=== PATIENT | male | born 1975 | race African-American/Black ===

== ENCOUNTER 2022-07-25 12:45 | Emergency (ER) | payer MEDICAID ==
[~2022-07-25] VITALS: Ht 167.6 cm; Wt 73.0 kg
--- NOTE | 2022-07-25 13:10 | NUR ---
BIBS C/O GENERALIZED WEAKNESS X 4 DAYS WITH FEVER AND CHILLS. AMBULATORY, AAOX4, BREATHING EVEN AND UNLABORED SATURATING AT 97%RA.
[2022-07-25] MEDS ORDERED: CEFTRIAXONE 500 MG VIAL ONE (13:25)
[2022-07-25] MEDS ORDERED: KETOROLAC TROMETHAMINE INJ 30 MG/ML VIAL ONE (13:25)
[2022-07-25] MEDS ORDERED: DOXYCYCLINE HYCLATE (100 MG) 100 MG TABLET ONE (13:26)
[2022-07-25] MEDS ORDERED: LIDOCAINE /MPF 1% VIAL 5 ML VIAL ONE (13:27)
[2022-07-25] MEDS ORDERED: KETOROLAC TROMETHAMINE INJ 30 MG/ML VIAL IM ONE (13:30)
[2022-07-25] MEDS ORDERED: DOXYCYCLINE HYCLATE (100 MG) 100 MG TABLET PO ONE (13:30)
[2022-07-25] MEDS ORDERED: CEFTRIAXONE 500 MG VIAL IM ONE (13:30)
--- NOTE | 2022-07-25 13:45 | NUR ---
SWAB FOR COVID19 AND RAPID INFLUENZA SENT TO LAB
--- NOTE | 2022-07-25 13:46 | NUR ---
MANAGER CLIENT SERVICE AT BEDSIDE
[2022-07-25] MEDS ORDERED: KETO10TA2 PO (14:59)
[2022-07-25] MEDS ORDERED: DOXY-326 PO (14:59)
[2022-07-25] MEDS ORDERED: PRED50TA PO (14:59)
[2022-07-25 15:11] VITALS: BP 118/77
--- NOTE | 2022-07-25 15:12 | NUR ---
Patient discharged to home in stable condition. Written and verbal after care instructions given. Patient verbalizes understanding of instruction.
== END 2022-07-25 15:12 | disposition home or self-care (01) ==
LOC: ER 12:48
DX: R53.1 Weakness (principal); A64 Unspecified sexually transmitted disease; Z60.2 Problems related to living alone; Z20.822 Contact with and (suspected) exposure to COVID-19
CPT/HCPCS: 99284; 87426; 86592; 86593; 96372 ×2; 87804 ×2; 36415; 87806; J0696; J1885; J3490; C9803

== ENCOUNTER 2022-08-03 17:20 | Emergency (ER) | payer MEDICAID ==
[~2022-08-03] VITALS: Ht 160 cm; Wt 63.5 kg
[~2022-08-03 17:20] MED LIST: DOXY-326 PO; KETO10TA2 PO; PRED50TA PO
--- NOTE | 2022-08-03 18:40 | NUR ---
RECEIVED PT 47 YRS MALE WALKING IN FROM HOME WITH GENRALIZED WEEKNESS AWAKE AND ALERT NO SOB OR DISTRESS
--- NOTE | 2022-08-03 19:18 | NUR ---
HAND OFF DEBBIE DEL RIO
[2022-08-03 20:08] VITALS: BP 121/66
== END 2022-08-03 20:17 | disposition home or self-care (01) ==
LOC: ER 17:22
DX: R53.1 Weakness (principal); Z79.899 Other long term (current) drug therapy; Z60.2 Problems related to living alone
CPT/HCPCS: 82962-TC

== ENCOUNTER 2022-09-03 12:40 | Inpatient (IN) | payer MEDICAID ==
[~2022-09-03] VITALS: Ht 162.6 cm; Wt 71.7 kg
--- NOTE | 2022-09-03 12:55 | NUR ---
THE PATIENT BIBS FOR C/O "THE BONE OR MEAT OF MY BUTT HURTS FOR A WEEK". PT DENIES ANY TRAUMA. WILL CONTINUE TO MONITOR THE PATIENT.
--- NOTE | 2022-09-03 13:56 | NUR ---
THE PATIENT IS TAKEN TO CT
[2022-09-03] MEDS ORDERED: IV NS 0.9% 1,000 ML IV ONE (14:00)
[2022-09-03 14:45] LABS: CALCIUM, SERUM 8.5 mg/dL (8.5-10.1); CREATININE 1.1 mg/dL (0.6-1.3); POTASSIUM 3.9 mmol/L (3.5-5.1)
[2022-09-03 14:46] LABS: BASOPHILS # (AUTO) 0.1 K/uL (0.0-0.2); EOSINOPHILS % (AUTO) 0.3 % (0.0-6.0); LYMPHOCYTES # (AUTO) 3.1 K/uL (0.8-4.8); LYMPHOCYTES % (AUTO) 44.4 % (20.0-44.0); MEAN CORPUSCULAR HGB CONC 30 g/dl (31.0-36.0); MEAN CORPUSCULAR VOLUME 85 fL (80-96); MONOCYTES # (AUTO) 0.8 K/uL (0.1-1.30); MONOCYTES % (AUTO) 11.4 % (2.0-12.0); NEUTROPHILS % (AUTO) 42.9 % (43.0-81.0); PLATELET COUNT (AUTO) 79 K/uL (150-450); RED BLOOD CELL COUNT(AUTO) 2.36 MIL/uL (4.5-6.0)
[2022-09-03 15:00] LABS: ALBUMIN 2.3 g/dL (3.4-5.0); BILIRUBIN,TOTAL 0.4 mg/dL (0.2-1.0)
[2022-09-03 15:15] LABS: HEMATOCRIT 20 % (39-51); HEMOGLOBIN 5.9 g/dL (13.5-17.5)
--- NOTE | 2022-09-03 15:15 | NUR ---
PAGED EPIC DIGITAL ADVERTISING ANALYST
--- NOTE | 2022-09-03 15:18 | NUR ---
COVID SWAB DONE AND SENT TO THE LAB
--- NOTE | 2022-09-03 15:26 | NUR ---
SUBMITTED MOVE SHEET
--- NOTE | 2022-09-03 15:31 | NUR ---
KEIRY DUDLEY SPEAKING WITH [employer] DIRT BIKE MECHANIC
--- NOTE | 2022-09-03 16:44 | NUR ---
REPORT GIVEN TO DILAN DEL RIO FOR NAVI
[2022-09-03] MEDS ORDERED: ONDANSETRON HCL/PF 4 MG/2 ML VIAL IVP PRN (17:00)
[2022-09-03] MEDS ORDERED: IV NS 0.9% 1,000 ML IV PRN (17:00)
[2022-09-03] MEDS ORDERED: ACETAMINOPHEN 325 MG TABLET PO PRN (17:00)
[2022-09-03] MEDS ORDERED: MAG HYDROX/AL HYDROX/SIMETH 30 ML UDC PO PRN (17:00)
[2022-09-03] MEDS ORDERED: MAGNESIUM HYDROXIDE 30 ML UDC PO PRN (17:00)
--- NOTE | 2022-09-03 17:22 | NUR ---
THE PATIENT IS TRANSFERED TO ROOM 117-1 IN STABLE CONDITION AND PER ACLS POLICY.
--- NOTE | 2022-09-03 17:23 | NUR ---
NURSE DILAN MADE AWARE THAT THE BLOOD FOR TRANSFUTION WAS NOT READY YET SO ENDORSED TO HER TO FOLLOW UP WITH THE BLOOD BLANK AND ADMINISTER IT PER ORDER.
--- NOTE | 2022-09-03 17:40 | NUR ---
PATIENT ADMITTED FROM ER, [place] IS AMBULATORY, SKIN INTACT, IV ACCESS RIGHT AC 20G, INTACT. WAITING FOR RBC TRANSFUSION. WILL CONTINUE TO MONITOR.
[2022-09-03] MEDS: PANTOPRAZOLE 40 MG VIAL IV SCH (17:41)
[2022-09-03 17:42] LABS: IRON, SERUM 53 ug/dl (50-175); TOTAL IRON BINDING CAPACITY 173 ug/dl (250-450)
[2022-09-03 17:49] LABS: LYMPHOCYTES % (MANUAL) 49 % (16-48); MONOCYTES % (MANUAL) 4 % (0-11.0); NEUTROPHILS % (MANUAL) 47 (42-76)
[2022-09-03 17:55] LABS: FERRITIN 107 ng/mL (8-388)
--- NOTE | 2022-09-03 19:30 | NUR ---
TIMBER TRIMMER OPENING NOTE RECEIVED PATIENT IN BED ALERT ORIENTED X4, NO SOB OR DISTRESS NOTED AT THIS TIME, DENIES PAIN AT THIS TIME, PATIENT HAS LOW PLATELET COUNT, WILL NEED BLOOD TRANSFUSION TO BE STARTED, VITALS STABLE AT THIS TIME, PATIENT ON TELE MONITOR SR HR 80BPM, PATIENT USING URINAL TO VOID, WITH BRP, IV SITE IS R AC 20G RUNNING NS AT 75ML/HR, ALL SAFETY MEASURES IN PLACE, CALL LIGHT WITHIN REACH WILL CONTINUE TO MONITOR THROUGH OUT SHIFT
[2022-09-03 20:22] VITALS: BP 120/66
--- NOTE | 2022-09-03 20:22 | NUR ---
AUTOMOTIVE FINANCE MANAGER NOTE RECEIVED 1 UNIT OF PRBC FROM LAB, AND STARTED @60ML PER HOUR FOR 15 MINUTES, VITAL SIGNS STABLE AFTER 15 MINUTES STARTED INFUSING @120ML PER HOUR
[2022-09-03 20:45] VITALS: BP 112/65
[2022-09-03 20:49] VITALS: BP 112/65
[2022-09-03 21:28] VITALS: BP 120/77
[2022-09-03 22:29] VITALS: BP 123/73
[2022-09-03] MEDS: HYDROCODONE/APAP 5/325MG TABLET PO PRN (22:35)
[2022-09-03 23:57] VITALS: BP 105/57
[2022-09-04] VITALS (10 sets, daily range): BP systolic 111–135; BP diastolic 60–90
--- NOTE | 2022-09-04 06:23 | NUR ---
SOLAR LAB TECHNICIAN CLOSING NOTE PATIENT IN BED AWAKE, ALERT AND ORIENTED X 4, NO SOB OR DISTRESS NOTED, DENIES PAIN AT THIS TIME, IV SITE RAC 20G, RUNNING 0.9 NS @ 75ML/HR, FLUSHING WELL, NO INFILTRATION NOTED, PATIENT USING URINAL TO MAKE VOIDS, MAY NEED OUTPUT PANCREATIC BIOPSY TO RULE OUT PANCREATIC CANCER, ALL SAFETY MEASURES IN PLACE, SIDE RAILS UP FOR SAFETY, CALL LIGHT WITHIN REACH, WILL ENDORSE NAVI TO ON COMING RN
[2022-09-04 07:10] LABS: BASOPHILS % (AUTO) 0.8 % (0.0-2.0); EOSINOPHILS % (AUTO) 1.2 % (0.0-6.0); HEMATOCRIT 21 % (39-51); LYMPHOCYTES # (AUTO) 1.5 K/uL (0.8-4.8); LYMPHOCYTES % (AUTO) 35.8 % (20.0-44.0); MEAN CORPUSCULAR HGB CONC 30 g/dl (31.0-36.0); MEAN CORPUSCULAR VOLUME 84 fL (80-96); MONOCYTES # (AUTO) 0.5 K/uL (0.1-1.30); MONOCYTES % (AUTO) 11.3 % (2.0-12.0); NEUTROPHILS # (AUTO) 2.1 K/uL (1.8-8.9); NEUTROPHILS % (AUTO) 50.9 % (43.0-81.0); PLATELET COUNT (AUTO) 62 K/uL (150-450); RED BLOOD CELL COUNT(AUTO) 2.56 MIL/uL (4.5-6.0); WHITE BLOOD COUNT (AUTO) 4.1 K/uL (4.3-11.0)
[2022-09-04 07:25] LABS: CALCIUM, SERUM 8.3 mg/dL (8.5-10.1); CREATININE 1.1 mg/dL (0.6-1.3); MAGNESIUM 1.8 mg/dL (1.8-2.4); PHOSPHORUS 4.2 mg/dL (2.5-4.9); POTASSIUM 3.9 mmol/L (3.5-5.1)
--- NOTE | 2022-09-04 07:36 | NUR ---
HUMAN RESOURCE INTERN OPENING NOTE PATIENT IN BED ASLEEP. ON ROOM AIR WITH NO SOB OR DISTRESS NOTED.ON TELE MONITOR. IV SITE AT RAC 20G PATENT AND INTACT RUNNING 0.9 NS @ 75ML/HR. ALL SAFETY MEASURES IN PLACE WITH BED IN LOWEST LOCKED POSITION, SIDE RAILS UP X2, AND CALL LIGHT AND BEDSIDE TABLE WITHIN REACH. WILL CONTINUE TO MONITOR.
[2022-09-04 07:38] LABS: HEMOGLOBIN 6.4 g/dL (13.5-17.5)
--- NOTE | 2022-09-04 07:59 | NUR ---
CRITICAL LAB OF HGB 6.4. PREM APONTE TRAVEL PT INFORMED. AWAITING RESPONSE.
[2022-09-04] MEDS: PANTOPRAZOLE 40 MG VIAL IV SCH ×2 (09:28→21:46)
--- NOTE | 2022-09-04 11:00 | NUR ---
BLOOD TRANSFUSION ADMINISTERED.
[2022-09-04 12:32] LABS: BAND % (MANUAL) 13 % (0.0-5.0); BASOPHILS % (MANUAL) 0 % (0.0-2.0); EOSINOPHILS % (MANUAL) 0 % (0-4); LYMPHOCYTES % (MANUAL) 31 % (16-48); MONOCYTES % (MANUAL) 10 % (0-11.0); NEUTROPHILS % (MANUAL) 46 (42-76)
[2022-09-04 17:01] LABS: HEMOGLOBIN 7.7 g/dL (13.5-17.5)
[2022-09-04] MEDS: IV NS 0.9% 1,000 ML IV PRN (17:03)
--- NOTE | 2022-09-04 18:00 | NUR ---
STOOL SAMPLE PROVIDED FOR FECAL OCCULT TESTING.
--- NOTE | 2022-09-04 18:46 | NUR ---
MS RN CLOSING NOTE PATIENT IN BED AWAKE. ALERT AND ORIENTED X4. ON ROOM AIR SATING AT 100% WITH NO SOB OR DISTRESS NOTED. IV SITE AT RAC 20G PATENT AND INTACT RUNNING 0.9 NS @ 100ML/HR. ALL DUE MEDS GIVEN. BLOOD TRANSFUSION GIVEN. ALL SAFETY MEASURES IN PLACE WITH BED IN LOWEST LOCKED POSITION, SIDE RAILS UP X2, AND CALL LIGHT AND BEDSIDE TABLE WITHIN REACH. WILL CONTINUE TO MONITOR. Addendum: 09/04/22 at 1849 by MALIA CRANDALL RN WILL ENDORSE TO ONCOMING SHIFT FOR NAVI.
[2022-09-04] MEDS: HYDROCODONE/APAP 5/325MG TABLET PO PRN (18:58)
--- NOTE | 2022-09-04 19:35 | NUR ---
MS RN Opening Note Received patient in bed; awake, alert and oriented x 4. On room air; tolerating well. Not in any form of respiratory and cardiac distress. Denies any pain or discomfort. With IV access of right antecubital 20g; patent and intact running with NS 1L infusing @ 100 ml/hr; flushes well. Able to make needs known. Fall and safety precautions initiated: call light and table within reach, side rails up x 2, bed in lowest locked position Will continue to monitor throughout shift.
[2022-09-04 21:19] LABS: OCCULT BLOOD STOOL NEGATIVE (NEGATIVE)
[2022-09-05] MEDS: IV NS 0.9% 1,000 ML IV PRN ×2 (03:47→14:54)
[2022-09-05 05:00] VITALS: BP 117/70
--- NOTE | 2022-09-05 06:40 | NUR ---
MS RN Closing Note Patient in bed; awake, a/o x 4. Stable on room air. In no acute distress. No c/o pain or discomfort. With IV access of right antecubital 20g; patent and intact running with NS 1L infusing @ 100 ml/hr; flushing well. Due meds given as indicated. All needs met. Fall and safety precautions maintained. Endorsed to morning shift for continuity of care.
[2022-09-05 06:57] LABS: BASOPHILS % (AUTO) 0.5 % (0.0-2.0); EOSINOPHILS % (AUTO) 0.4 % (0.0-6.0); HEMATOCRIT 22 % (39-51); LYMPHOCYTES # (AUTO) 3.5 K/uL (0.8-4.8); LYMPHOCYTES % (AUTO) 44.3 % (20.0-44.0); MEAN CORPUSCULAR HGB CONC 31 g/dl (31.0-36.0); MEAN CORPUSCULAR VOLUME 83 fL (80-96); MONOCYTES # (AUTO) 0.8 K/uL (0.1-1.30); MONOCYTES % (AUTO) 9.9 % (2.0-12.0); NEUTROPHILS # (AUTO) 3.5 K/uL (1.8-8.9); NEUTROPHILS % (AUTO) 44.9 % (43.0-81.0); PLATELET COUNT (AUTO) 62 K/uL (150-450); RED BLOOD CELL COUNT(AUTO) 2.71 MIL/uL (4.5-6.0); WHITE BLOOD COUNT (AUTO) 7.8 K/uL (4.3-11.0)
--- NOTE | 2022-09-05 06:58 | NUR ---
RN Note Received call from Lab. Patient's hgb level is 7.0. Endorsed lab result to incoming RN Lorenza for monitoring and lo.
[2022-09-05 07:08] LABS: BILIRUBIN,TOTAL 0.4 mg/dL (0.2-1.0); CALCIUM, SERUM 8.6 mg/dL (8.5-10.1); CREATININE 1.1 mg/dL (0.6-1.3); POTASSIUM 3.6 mmol/L (3.5-5.1); TOTAL PROTEIN, SERUM 10.8 g/dL (6.4-8.2)
[2022-09-05 07:25] LABS: BAND % (MANUAL) 7 % (0.0-5.0); BASOPHILS % (MANUAL) 0 % (0.0-2.0); EOSINOPHILS % (MANUAL) 0 % (0-4); LYMPHOCYTES % (MANUAL) 37 % (16-48); MONOCYTES % (MANUAL) 6 % (0-11.0); NEUTROPHILS % (MANUAL) 50 (42-76)
--- NOTE | 2022-09-05 07:36 | NUR ---
MS RN OPENING NOTE PATIENT RECEIVED IN BED AWAKE. ALERT AND ORIENTED X4. ON ROOM AIR, WITH NO S/S OF SOB OR RESPIRATORY DISTRESS, BREATHING EVEN AND UNLABORED. IV ACCESS AT RAC 20G, PATENT AND INTACT RUNNING NS @ 100 ML/HR. SAFETY PRECAUTIONS IN PLACE WITH BED IN LOWEST LOCKED POSITION, SIDE RAILS UP X2, CALL LIGHT AND TABLE WITHIN REACH. WILL CONTINUE TO MONITOR.
[2022-09-05 08:00] VITALS: BP 104/68
[2022-09-05] MEDS: PANTOPRAZOLE 40 MG VIAL IV SCH ×2 (08:16→21:17)
[2022-09-05 12:11] LABS: THYROID STIMULATING HORMONE 2.296 uIU/mL (0.358-3.74)
[2022-09-05 13:33] LABS: HEMOGLOBIN 7.5 g/dL (13.5-17.5)
[2022-09-05 13:42] LABS: AMYLASE 100 U/L (25-115); LIPASE 93 U/L (73-393)
[2022-09-05] MEDS: HYDROCODONE/APAP 5/325MG TABLET PO PRN (14:52)
[2022-09-05 16:00] VITALS: BP 132/87
--- NOTE | 2022-09-05 19:00 | NUR ---
MS RN CLOSING NOTE NO SIGNIFICANT CHANGES. PATIENT IN BED AWAKE, ALERT AND ORIENTED X4. ON ROOM AIR, WITH NO S/S OF SOB OR RESPIRATORY DISTRESS, BREATHING EVEN AND UNLABORED. IV ACCESS AT RAC 20G, PATENT AND INTACT RUNNING NS @ 100 ML/HR. SAFETY PRECAUTIONS IN PLACE WITH BED IN LOWEST LOCKED POSITION, SIDE RAILS UP X2, CALL LIGHT AND TABLE WITHIN REACH. WILL ENDORSE TO ONCOMING SHIFT FOR NAVI.
--- NOTE | 2022-09-05 19:05 | NUR ---
RN NOTE Received pt in bed, alert, awake, verbally responsive, oriented x4. Denies pain or discomfort at this time. On room air, well leonel, no sob, no acute resp distress noted. Afebrile. RAC #20g patent, flushes well, dressing CDI, infusing 100ml/hr, well tolerated. Call light within easy reach, safety precautions implemented. Will continue plan of care.
[2022-09-06] VITALS (8 sets, daily range): BP systolic 119–138; BP diastolic 70–86
[2022-09-06] MEDS: IV NS 0.9% 1,000 ML IV PRN ×2 (02:19→23:59)
[2022-09-06 06:17] LABS: BASOPHILS # (AUTO) 0.1 K/uL (0.0-0.2); EOSINOPHILS % (AUTO) 0.8 % (0.0-6.0); HEMATOCRIT 22 % (39-51); LYMPHOCYTES # (AUTO) 3.3 K/uL (0.8-4.8); LYMPHOCYTES % (AUTO) 44.3 % (20.0-44.0); MEAN CORPUSCULAR HGB CONC 31 g/dl (31.0-36.0); MEAN CORPUSCULAR VOLUME 83 fL (80-96); MONOCYTES # (AUTO) 0.7 K/uL (0.1-1.30); MONOCYTES % (AUTO) 9.1 % (2.0-12.0); NEUTROPHILS # (AUTO) 3.3 K/uL (1.8-8.9); NEUTROPHILS % (AUTO) 44.8 % (43.0-81.0); PLATELET COUNT (AUTO) 61 K/uL (150-450); RED BLOOD CELL COUNT(AUTO) 2.71 MIL/uL (4.5-6.0); WHITE BLOOD COUNT (AUTO) 7.5 K/uL (4.3-11.0)
--- NOTE | 2022-09-06 06:35 | NUR ---
RN NOTE Received call from lab for Hgb result of 7.0. Pt with standing order: to transfuse 1PRBC for Hgb <7, or to transfuse 1PRBC for Hgb <8 and if bleeding. Pt in stable condition, VSS, no signs and symptoms of active bleeding noted.
[2022-09-06 06:49] LABS: BILIRUBIN,TOTAL 0.4 mg/dL (0.2-1.0); CALCIUM, SERUM 8.7 mg/dL (8.5-10.1); CREATININE 1.2 mg/dL (0.6-1.3); POTASSIUM 3.6 mmol/L (3.5-5.1); TOTAL PROTEIN, SERUM 10.6 g/dL (6.4-8.2)
--- NOTE | 2022-09-06 06:50 | NUR ---
RN NOTE Pt remains in stable condition, no significant changes noted. Currently asleep at this time, easily arousable. On room air, well tolerated, no sob, nad. NS infusing to RAC #20G, well leonel, no ASE noted. Kept pt. on NPO PMN for CT of abd, pelvis and chest with contrast. All consents signed and placed in chart. Pt also for 24hr urine collection to be started at 0800. Will communicate to morning shift nurse.
--- NOTE | 2022-09-06 07:00 | NUR ---
RN OPENIGN NOTE PATIENT ALERT, ORIENTED X4, ON ROOM TOLERATING WELL, NO SOB, PAIN OR DISCOMFORT NOTED. IV ACCESS ON RAC REBEKAH 20 WITH NS @ 100 ML/HR. PATIENT KEPT ON NPO FOR PMN FOR CT OF ABDOMEN, PELVIS AND CHEST WITH CONTRAST. CONSENT IN PLACE. PATIENT IN 24 HR URINE COLLECTION TO START AT 0800. ALL SAFETY PRECAUTIONS IN PLACE, BED IN LOWEST AND LOCKED POSITION, BED AND CALL LIGHT WITHIN REACH, SIDE RAILS UP X2. WILL CONTINUE TO MONITOR.
[2022-09-06 08:06] LABS: IMMUNOGLOBULIN A, SERUM 22 mg/dL (90-386); IMMUNOGLOBULIN G, SERUM 7904 mg/dL (603-1613)
[2022-09-06] MEDS: PANTOPRAZOLE 40 MG VIAL IV SCH ×2 (08:39→21:42)
[2022-09-06] MEDS ORDERED: IOHEXOL-300 100 ML VIAL IV ONE (09:50)
[2022-09-06] MEDS ORDERED: IV NS 0.9% 250 ML IV ONE (09:51)
[2022-09-06] MEDS: CYANOCOBALAMIN 1,000 MCG/ML VIAL SQ SCH (11:28)
[2022-09-06] MEDS: FOLIC ACID 1 MG TABLET PO SCH (12:25)
[2022-09-06 12:45] LABS: BAND % (MANUAL) 13 % (0.0-5.0); BASOPHILS % (MANUAL) 0 % (0.0-2.0); EOSINOPHILS % (MANUAL) 1 % (0-4); LYMPHOCYTES % (MANUAL) 32 % (16-48); MONOCYTES % (MANUAL) 11 % (0-11.0); NEUTROPHILS % (MANUAL) 43 (42-76)
[2022-09-06 15:06] LABS: *ANA ANTI-CENTROMERE B AB <0.2 AI (0.0-0.9); *ANA ANTI-DNA(DS) AB, QN <1 IU/mL (0-9); *ANA ANTI-JO-1 <0.2 AI (0.0-0.9); *ANA ANTICHROMATIN ANTIBODY <0.2 AI (0.0-0.9); *ANA RNP ANTIBODIES <0.2 AI (0.0-0.9); *ANA SJOGREN'S ANTI-SS-A <0.2 AI (0.0-0.9); *ANA SJOGREN'S ANTI-SS-B <0.2 AI (0.0-0.9); *ANAANTI-SCLERODERMA-70 AB <0.2 AI (0.0-0.9); *ANASMITH AB <0.2 AI (0.0-0.9)
[2022-09-06] MEDS ORDERED: CARBAMIDE PEROXIDE OTIC 15 ML BOTTLE RIGHT EAR ONE (17:00)
[2022-09-06 18:14] LABS: HEMOGLOBIN 8.5 g/dL (13.5-17.5)
--- NOTE | 2022-09-06 19:46 | NUR ---
RN CLOSING NOTE PATIENT ALERT, ORIENTED X4, ON ROOM TOLERATING WELL, NO SOB, PAIN OR DISCOMFORT NOTED. IV ACCESS ON RAC REBEKAH 20 WITH NS @ 100 ML/HR. PATIENT IN 24 HR URINE COLLECTION STARTED AT 0800. ALL PRESCRIBED MEDICATIONS GIVEN, PATIENT WAS REPOSITIONED EVERY TWO HOURS. ALL SAFETY PRECAUTIONS IN PLACE, BED IN LOWEST AND LOCKED POSITION, BED AND CALL LIGHT WITHIN REACH, SIDE RAILS UP X2. REPORT GIVEN TO AGRICULTURAL SERVICES DIRECTOR NURSE FOR CONTINUING OF CARE.
--- NOTE | 2022-09-06 19:50 | NUR ---
MS RN OPENING NOTES - RECEIVED PATIENT AWAKE IN BED. A/O X4. BREATHING EVEN AND NON-LABORED ON ROOM AIR. DENIES PAIN, NAUSEA OR VOMITING AT THIS TIME. HAS RIGHT ANTECUBITAL IV ACCESS CURRENTLY DISCONNECTED TO IVF. NO S/S OF INFILTRATION NOTED. SAFETY PRECAUTIONS IN PLACE: BED LOCKED AND IN LOW POSITION, SIDE RAILS UP X2, CALL LIGHT WITHIN REACH. WILL CONTINUE PLAN OF CARE.
[2022-09-06] MEDS: HYDROCODONE/APAP 5/325MG TABLET PO PRN (21:51)
--- NOTE | 2022-09-06 21:55 | NUR ---
C/O MODERATE PAIN IN THE LOWER BACK/BUTTOCKS AREA 10/01. GAVE PRN NORCO 5-325MG, TOLERATED WELL. PATIENT WAS ASKING IF HE CAN BUY IT FROM A PHARMACY, PATIENT EDUCATION GIVEN REGARDING NARCOTICS. VERBALIZED UNDERSTANDING.
[2022-09-07 01:07] LABS: CARBOHYDRATE AG 19-9 <2 U/mL (0-35)
[2022-09-07 04:00] VITALS: BP 123/78
[2022-09-07 05:08] LABS: *SPE A/G RATIO 0.4 (0.7-1.7); *SPE ALPHA-1-GLOBULIN 0.4 g/dL (0.0-0.4); *SPE ALPHA-2-GLOBULIN 0.7 g/dL (0.4-1.0); *SPE M-SPIKE 5.3 g/dL (Not Observed)
[2022-09-07 06:23] LABS: BASOPHILS % (AUTO) 0.5 % (0.0-2.0); EOSINOPHILS % (AUTO) 0.7 % (0.0-6.0); HEMATOCRIT 25 % (39-51); HEMOGLOBIN 7.8 g/dL (13.5-17.5); LYMPHOCYTES % (AUTO) 42.3 % (20.0-44.0); MEAN CORPUSCULAR HGB CONC 31 g/dl (31.0-36.0); MEAN CORPUSCULAR VOLUME 84 fL (80-96); MONOCYTES # (AUTO) 0.6 K/uL (0.1-1.30); MONOCYTES % (AUTO) 9.1 % (2.0-12.0); NEUTROPHILS # (AUTO) 3.3 K/uL (1.8-8.9); NEUTROPHILS % (AUTO) 47.4 % (43.0-81.0); PLATELET COUNT (AUTO) 59 K/uL (150-450); RED BLOOD CELL COUNT(AUTO) 3.02 MIL/uL (4.5-6.0)
[2022-09-07 06:54] LABS: ALBUMIN 2.1 g/dL (3.4-5.0); BILIRUBIN,TOTAL 0.4 mg/dL (0.2-1.0); CALCIUM, SERUM 8.6 mg/dL (8.5-10.1); CREATININE 1.4 mg/dL (0.6-1.3); POTASSIUM 3.3 mmol/L (3.5-5.1); TOTAL PROTEIN, SERUM 10.8 g/dL (6.4-8.2)
--- NOTE | 2022-09-07 07:22 | NUR ---
MS RN CLOSING NOTES - PATIENT SLEEPING, EASY TO AROUSE. ABLE TO VERBALIZE NEEDS. NO CARDIAC OR RESPIRATORY DISTRESS THROUGHOUT THE NIGHT. NO C/O PAIN OR DISCOMFORT. AFEBRILE. HAS RIGHT ANTECUBITAL IV ACCESS WITH NS RUNNING AT 100 ML/HR. INTACT, PATENT AND FLUSHING. 24 HOUR URINE COLLECTION BOTTLE PLACED ON BEDSIDE WITH ICE. ALL DUE MEDS GIVEN AND NEEDS ATTENDED. SAFETY PRECAUTIONS MAINTAINED. WILL ENDORSE TO NEXT SHIFT FOR NAVI.
--- NOTE | 2022-09-07 07:24 | NUR ---
MS RN OPENING NOTE: RECEIVED PT IN BED. AOX3. ABLE TO MAKE NEEDS KNOWN. NO RESP DISTRESS NOTED. ON RA 02SAT 97%. DENIES PAIN OR DISCOMFORT. RAC 20G PATENT AND INTACT AT 100ML/HR. ABD SOFT NON DISTENDED. + BOWEL SOUNDS IN ALL 4 QUADRANTS. CALL LIGHT WITHIN REACH. BED KEPT LOW AND LOCKED POSITION FOR SAFETY.
[2022-09-07 08:00] VITALS: BP 106/65
--- NOTE | 2022-09-07 08:00 | NUR ---
MS RN NOTE: 24 HOUR URINE COLLECTED, SENT TO LAB
[2022-09-07 08:01] LABS: BAND % (MANUAL) 10 % (0.0-5.0); BASOPHILS % (MANUAL) 0 % (0.0-2.0); EOSINOPHILS % (MANUAL) 0 % (0-4); LYMPHOCYTES % (MANUAL) 32 % (16-48); MONOCYTES % (MANUAL) 7 % (0-11.0); NEUTROPHILS % (MANUAL) 51 (42-76)
[2022-09-07] MEDS: FOLIC ACID 1 MG TABLET PO SCH (08:41)
[2022-09-07] MEDS: CYANOCOBALAMIN 1,000 MCG/ML VIAL SQ SCH (08:41)
[2022-09-07] MEDS: PANTOPRAZOLE 40 MG VIAL IV SCH ×2 (08:41→20:30)
[2022-09-07] MEDS: IV NS 0.9% 1,000 ML IV PRN (08:49)
[2022-09-07] MEDS ORDERED: POTASSIUM CHLORIDE 20 MEQ TAB.PRT.SR PO ONE (09:30)
--- NOTE | 2022-09-07 13:00 | NUR ---
MS RN NOTE: PREM PRESSURE CONTROL SUPERVISOR AT BEDSIDE. PER PREM EGD WILL BE DONE ON 09/08/22. NPO AFTER MIDNIGHT ON 09/07/22. CONSENT SIGNED DONE AND PREOP CHECKLIST STARTED AND KEPT IN CHART.
[2022-09-07 13:22] LABS: HEMOGLOBIN 8.4 g/dL (13.5-17.5)
--- NOTE | 2022-09-07 14:26 | NUR ---
MS RN NOTE: UA COLLECTED AND SENT TO LAB
[2022-09-07 16:00] VITALS: BP 130/77
[2022-09-07] MEDS ORDERED: LORAZEPAM 1 MG TABLET PO ONE ×2 (16:00→19:00)
[2022-09-07] MEDS ORDERED: MORPHINE SULFATE INJ 2 MG/ML DISP.SYRIN IV ONE ×2 (16:00→19:00)
[2022-09-07] MEDS ORDERED: LIDOCAINE 1% INJ 50 ML MDV IJ ONE (16:00)
--- NOTE | 2022-09-07 16:00 | NUR ---
MS RN NOTE: ATIVAN AND MORPHINE NOT GIVEN AT 1600. REASON MD IS NOT HERE YET FOR THE BIOPSY
[2022-09-07 16:17] LABS: BILIRUBIN,URINE NEGATIVE (NEGATIVE); COLOR,URINE YELLOW (YELLOW); LEUKOCYTE ESTERASE ,URINE NEGATIVE (NEGATIVE); NITRITE, URINE NEGATIVE (NEGATIVE); PROTEIN,URINE NEGATIVE (NEGATIVE); UGLUCOSE NEGATIVE (NEGATIVE); UROBILINOGEN,URINE 0.2 EU/dL (0.2)
[2022-09-07 17:18] LABS: WBC,URINE 0-2 /HPF (0-3)
[2022-09-07 17:19] LABS: BACTERIA,URINE None seen /HPF (None Seen); SQUAMOUS EPITHELIAL CELL,UR 0-2 /HPF (None Seen)
--- NOTE | 2022-09-07 18:21 | NUR ---
MS RN CLOSING NOTE: PT IN BED. AAO4. ABLE TO MAKE NEEDS KNOWN. DENIES PAIN OR DISCOMFORT. NO RESP DISTRESS NOTED. ON RA 02SAT 98%. SKIN WARM AND DRY TO TOUCH. CONTINENT OF B&B FUNCTION. RAC 20G. PATENT AND INTACT NS AT 100ML/HR. NO INFILTRATION NOTED. PT NPO AFTER MIDNIGHT FOR SCHEDULED EGD IN AM WITH DR. BERGMAN.
[2022-09-07] MEDS ORDERED: LIDOCAINE 1% INJ 50 ML MDV IJ STA (19:27)
[2022-09-07 20:00] VITALS: BP 135/75
[2022-09-07] MEDS: HYDROCODONE/APAP 5/325MG TABLET PO PRN (21:56)
[2022-09-08 02:15] LABS: BASOPHILS # (AUTO) 0.1 K/uL (0.0-0.2); BASOPHILS % (AUTO) 0.8 % (0.0-2.0); EOSINOPHILS % (AUTO) 0.6 % (0.0-6.0); HEMATOCRIT 26 % (39-51); LYMPHOCYTES # (AUTO) 3.6 K/uL (0.8-4.8); LYMPHOCYTES % (AUTO) 45.3 % (20.0-44.0); MEAN CORPUSCULAR HGB CONC 31 g/dl (31.0-36.0); MEAN CORPUSCULAR VOLUME 83 fL (80-96); MONOCYTES # (AUTO) 0.7 K/uL (0.1-1.30); MONOCYTES % (AUTO) 9.3 % (2.0-12.0); NEUTROPHILS # (AUTO) 3.5 K/uL (1.8-8.9); PLATELET COUNT (AUTO) 60 K/uL (150-450); RED BLOOD CELL COUNT(AUTO) 3.12 MIL/uL (4.5-6.0); WHITE BLOOD COUNT (AUTO) 7.9 K/uL (4.3-11.0)
[2022-09-08 03:42] LABS: BAND % (MANUAL) 12 % (0.0-5.0); BASOPHILS % (MANUAL) 0 % (0.0-2.0); EOSINOPHILS % (MANUAL) 0 % (0-4); LYMPHOCYTES % (MANUAL) 29 % (16-48); MONOCYTES % (MANUAL) 6 % (0-11.0); NEUTROPHILS % (MANUAL) 53 (42-76)
[2022-09-08 04:00] VITALS: BP 133/85
--- NOTE | 2022-09-08 06:45 | NUR ---
RN CLOSING NOTE A/OX4. MED SURG. S/P BONE MARROW BIOPSY, SLIGHT BLEEDING AT SITE. DRESSING REINFORCED. NPO FOR EDG. PRN NORCO GIVEN FOR PAIN. PLAN FOR EGD TODAY WITH DR. BERGMAN.
--- NOTE | 2022-09-08 07:00 | NUR ---
RN OPENING NOTE PATIENT A/OX4. VERBALLY RESPONSIVE ON ROOM AIR WITH NO SIGNS OR SYMPTOMS OF SOB, PAIN OR DISTRESS. O2 SAT AT 95% IV ACCESS ON RAC REBEKAH 20 WITH NS RUNNING AT 100 ML/HR. S/P BONE MARROW BIOPSY, SLIGHT BLEEDING AT SITE. DRESSING REINFORCED. NPO FOR EDG. PRN NORCO GIVEN FOR PAIN BY KNOT BUMPER NURSE. PLAN FOR EGD TODAY WITH DR. BERGMAN. ALL SAFETY PRECAUTIONS IN PLACE, BED IN LOWEST AND LOCKED POSITION, HOB ELEVATED, CALL LIGHT AND TABLE WITHIN REACH, SIDE RAILS UP X2. WILL CONTINUE TO MONITOR.
[2022-09-08] MEDS ORDERED: ANESTHESIA TRAY IN PYXIS 1 EA TRAY MC ONE (07:29)
[2022-09-08 08:00] VITALS: BP 130/76
[2022-09-08 08:44] LABS: CALCIUM, SERUM 8.9 mg/dL (8.5-10.1); CREATININE 1.3 mg/dL (0.6-1.3); POTASSIUM 3.7 mmol/L (3.5-5.1)
[2022-09-08] MEDS ORDERED: PROSOURCE / PROSTAT (PYXIS) 30 ML UDC GT SCH (09:00)
[2022-09-08] MEDS: PANTOPRAZOLE 40 MG VIAL IV SCH (09:33)
[2022-09-08] MEDS: CYANOCOBALAMIN 1,000 MCG/ML VIAL SQ SCH (09:33)
[2022-09-08] MEDS: FOLIC ACID 1 MG TABLET PO SCH (09:33)
[2022-09-08] MEDS ORDERED: Folic Acid PO (11:24)
[2022-09-08] MEDS ORDERED: PANT40TA2 PO (11:24)
[2022-09-08 12:07] LABS: IMMUNOGLOBULIN M, SERUM 29 mg/dL (20-172)
--- NOTE | 2022-09-08 13:30 | NUR ---
RN NOTE PATIENT WAS DISCHARGED HOME IN A STABLED CONDITION, ALERT AND ORIENTED X 4. ON ROOM AIR, O2 SAT AT 96%. NO SOB OR ACUTE DISTRESS NOTED. IV ACCESS REMOVED, NO BLEEDING NOTED, DRESSING INTACT. PATIENT SIGN THE DISCHARGED PAPERS AND BELONGINGS. ALL BELONGINGS WITH PATIENT AT DISCHARGE.
== END 2022-09-08 13:25 | disposition home or self-care (01) | DRG 241 ==
LOC: ER 12:45 → TELE1 16:29 → MEDSG1 09-04 12:45
PROVIDERS: ADMIT Nurse Practitioner Acute Care; ATTEND Nurse Practitioner Acute Care
PROC: 30233N1 Transfusion of Nonautologous Red Blood Cells into Peripheral Vein, Percutaneous Approach (ICD-10-PCS; principal; 2022-09-03)
PROC: 07DR3ZX Extraction of Iliac Bone Marrow, Percutaneous Approach, Diagnostic (ICD-10-PCS; 2022-09-07)
PROC: 0DB98ZX Excision of Duodenum, Via Natural or Artificial Opening Endoscopic, Diagnostic (ICD-10-PCS; 2022-09-08)
DX: K29.71 Gastritis, unspecified, with bleeding (principal); D61.818 Other pancytopenia; D69.6 Thrombocytopenia, unspecified; E44.0 Moderate protein-calorie malnutrition; E87.1 Hypo-osmolality and hyponatremia; E88.09 Other disorders of plasma-protein metabolism, not elsewhere classified; Z20.822 Contact with and (suspected) exposure to COVID-19; K86.9 Disease of pancreas, unspecified; Z79.1 Long term (current) use of non-steroidal anti-inflammatories (NSAID); K80.20 Calculus of gallbladder without cholecystitis without obstruction; K57.90 Diverticulosis of intestine, part unspecified, without perforation or abscess without bleeding; R16.1 Splenomegaly, not elsewhere classified; T39.395A Adverse effect of other nonsteroidal anti-inflammatory drugs [NSAID], initial encounter; Y92.009 Unspecified place in unspecified non-institutional (private) residence as the place of occurrence of the external cause; R59.0 Localized enlarged lymph nodes; I86.8 Varicose veins of other specified sites; R79.89 Other specified abnormal findings of blood chemistry; E53.8 Deficiency of other specified B group vitamins; E87.6 Hypokalemia
CPT/HCPCS: 36415; 71260-TC; 80048-TC; 80053-TC; 80061-TC; 81001; 82150-TC; 82232; 82272-TC; 82378; 82607-TC; 82728-TC; 82784; 82962-TC; 83540-TC; 83615-TC; 83690-TC; 83735-TC; 84100-TC; 84155; 84165; 84443-TC; 85025-TC; 85027-TC; 85045-TC; 85610-TC; 85730-TC; 86140-TC; 86225; 86235; 86301; 86316; 86334; 86431-TC; 86706; 86803; 86850-TC; 87081-TC; 87340; A4223; A6403; C9113; C9803; G0378; J2270; J2704; J3420; J3490; J7030; J7050; P9016; Q9967

== ENCOUNTER 2022-10-27 11:20 | Inpatient (IN) | payer MEDICAID ==
[~2022-10-27] VITALS: Ht 160 cm; Wt 72.1 kg
[~2022-10-27 11:20] MED LIST changes: -DOXY-326 PO; +Folic Acid PO; -KETO10TA2 PO; +PANT40TA2 PO; -PRED50TA PO
[2022-10-27] MEDS ORDERED: KETOROLAC TROMETHAMINE INJ 30 MG/ML VIAL IV ONE (12:00)
[2022-10-27] MEDS ORDERED: ACETAMINOPHEN ES 500 MG TABLET PO ONE (12:00)
[2022-10-27 12:06] LABS: BASOPHILS # (AUTO) 0.1 K/uL (0.0-0.2); BASOPHILS % (AUTO) 0.8 % (0.0-2.0); EOSINOPHILS # (AUTO) 0.1 K/uL (0.0-0.7); EOSINOPHILS % (AUTO) 0.7 % (0.0-6.0); HEMATOCRIT 23 % (39-51); HEMOGLOBIN 7.3 g/dL (13.5-17.5); LYMPHOCYTES # (AUTO) 3.7 K/uL (0.8-4.8); LYMPHOCYTES % (AUTO) 48.2 % (20.0-44.0); MEAN CORPUSCULAR HEMOGLOBIN 26 PG (26.0-33.0); MEAN CORPUSCULAR HGB CONC 32 g/dl (31.0-36.0); MEAN CORPUSCULAR VOLUME 80 fL (80-96); MONOCYTES # (AUTO) 0.9 K/uL (0.1-1.30); MONOCYTES % (AUTO) 11.7 % (2.0-12.0); NEUTROPHILS % (AUTO) 38.6 % (43.0-81.0); PLATELET COUNT (AUTO) 62 K/uL (150-450); RED BLOOD CELL COUNT(AUTO) 2.85 MIL/uL (4.5-6.0); RED CELL DISTRIBUTION WIDTH 20.2 % (11.5-15.0); WHITE BLOOD COUNT (AUTO) 7.7 K/uL (4.3-11.0)
[2022-10-27] MEDS ORDERED: KETOROLAC TROMETHAMINE 15 MG/ML VIAL ONE (12:10)
[2022-10-27] MEDS ORDERED: ACETAMINOPHEN ES 500 MG TABLET ONE (12:10)
[2022-10-27 12:16] LABS: CARBON DIOXIDE 26 mmol/L (21-32); CHLORIDE 99 mmol/L (98-107); CREATININE 0.8 mg/dL (0.6-1.3); GLUCOSE 85 mg/dL (74-106); POTASSIUM 4.6 mmol/L (3.5-5.1); SODIUM SERUM 124 mmol/L (136-145); UREA NITROGEN, BLOOD 12 mg/dL (7-18)
[2022-10-27 12:19] LABS: INR 1.21 (0.91-1.10); PARTIAL THROMBOPLASTIN TIME 24.5 SEC (24.3-34.3); PROTHROMBIN TIME 12.6 SECS (9.2-11.1)
[2022-10-27 12:31] LABS: ALANINE AMINOTRANSFERASE 26 U/L (12-78); ALBUMIN 2.6 g/dL (3.4-5.0); ALKALINE PHOSPHATASE 71 U/L (46-116); ASPARTATE AMINOTRANSFERASE 26 U/L (15-37); BILIRUBIN,DIRECT 0.1 mg/dL (0.0-0.2); BILIRUBIN,TOTAL 0.5 mg/dL (0.2-1.0); NT-PRO BNP 34 pg/mL (0-125); TOTAL PROTEIN, SERUM 14.8 g/dL (6.4-8.2)
[2022-10-27] MEDS ORDERED: IOHEXOL-300 100 ML VIAL IV ONE (12:38)
[2022-10-27] MEDS ORDERED: CT SWABBABLE VALVE TRANS SET 1 EA INFUS.SET MC ONE (12:38)
[2022-10-27 13:10] LABS: ANISOCYTOSIS 1+; BASOPHILS % (MANUAL) 0 % (0.0-2.0); EOSINOPHILS % (MANUAL) 0 % (0-4); HYPOCHROMASIA 1+; LYMPHOCYTES % (MANUAL) 45 % (16-48); MONOCYTES % (MANUAL) 13 % (0-11.0); NEUTROPHILS % (MANUAL) 42 (42-76); PLATELET ESTIMATE DECREASED; STOMATOCYTES 1+
[2022-10-27] MEDS ORDERED: IV NS 0.9% 1,000 ML IV ONE (13:30)
[2022-10-27] MEDS ORDERED: NAPR220T66 PO (13:49)
[2022-10-27 14:58] LABS: APPEARANCE,URINE CLEAR (CLEAR); BILIRUBIN,URINE NEGATIVE (NEGATIVE); BLOOD, URINE TRACE-INTA Ery/uL (NEGATIVE); COLOR,URINE YELLOW (YELLOW); KETONES,URINE NEGATIVE (NEGATIVE); LEUKOCYTE ESTERASE ,URINE NEGATIVE (NEGATIVE); NITRITE, URINE NEGATIVE (NEGATIVE); PROTEIN,URINE 1+ mg/dl (NEGATIVE); UGLUCOSE NEGATIVE (NEGATIVE); UROBILINOGEN,URINE 0.2 EU/dL (0.2)
[2022-10-27 15:45] LABS: ADD URINE CULTURE NO; BACTERIA,URINE None seen /HPF (None Seen); SQUAMOUS EPITHELIAL CELL,UR 0-2 /HPF (None Seen); WBC,URINE 0-2 /HPF (0-3)
[2022-10-27] MEDS ORDERED: ONDANSETRON HCL/PF 4 MG/2 ML VIAL IVP PRN (16:30)
[2022-10-27] MEDS ORDERED: ACETAMINOPHEN 325 MG TABLET PO PRN (16:30)
[2022-10-27] MEDS ORDERED: IV NS 0.9% 1,000 ML IV PRN (16:30)
[2022-10-27 18:34] LABS: CALCIUM, SERUM 8.6 mg/dL (8.5-10.1); CREATININE 0.9 mg/dL (0.6-1.3); POTASSIUM 4.2 mmol/L (3.5-5.1)
[2022-10-27 20:00] VITALS: BP 109/65; TEMP 98.1; O2SAT 100
[2022-10-28 04:00] VITALS: BP 112/71; TEMP 97.8; O2SAT 95
[2022-10-28 06:59] LABS: BASOPHILS % (AUTO) 0.7 % (0.0-2.0); EOSINOPHILS % (AUTO) 0.7 % (0.0-6.0); HEMATOCRIT 24 % (39-51); HEMOGLOBIN 7.3 g/dL (13.5-17.5); LYMPHOCYTES % (AUTO) 51.6 % (20.0-44.0); MEAN CORPUSCULAR HEMOGLOBIN 25 PG (26.0-33.0); MEAN CORPUSCULAR HGB CONC 31 g/dl (31.0-36.0); MEAN CORPUSCULAR VOLUME 82 fL (80-96); MONOCYTES # (AUTO) 0.5 K/uL (0.1-1.30); MONOCYTES % (AUTO) 9.5 % (2.0-12.0); NEUTROPHILS # (AUTO) 2.2 K/uL (1.8-8.9); NEUTROPHILS % (AUTO) 37.5 % (43.0-81.0); RED BLOOD CELL COUNT(AUTO) 2.92 MIL/uL (4.5-6.0); RED CELL DISTRIBUTION WIDTH 20.2 % (11.5-15.0); WHITE BLOOD COUNT (AUTO) 5.8 K/uL (4.3-11.0)
[2022-10-28 07:17] LABS: CREATININE 0.8 mg/dL (0.6-1.3); MAGNESIUM 1.9 mg/dL (1.8-2.4); PHOSPHORUS 3.9 mg/dL (2.5-4.9); POTASSIUM 4.2 mmol/L (3.5-5.1)
[2022-10-28 07:20] LABS: PLATELET COUNT (AUTO) 44 K/uL (150-450)
[2022-10-28 08:00] VITALS: BP 119/75; TEMP 98.1; O2SAT 100
[2022-10-28 10:12] LABS: ANISOCYTOSIS 2+; BAND % (MANUAL) 1 % (0.0-5.0); HYPOCHROMASIA 2+; LYMPHOCYTES % (MANUAL) 54 % (16-48); MONOCYTES % (MANUAL) 7 % (0-11.0); NEUTROPHILS % (MANUAL) 38 (42-76); PLATELET ESTIMATE DECREASED
== END 2022-10-28 10:33 | disposition left against medical advice (07) | DRG 253 ==
LOC: ER 11:33 → TELE-TD 14:15 → MEDSG1 16:16
PROVIDERS: ADMIT Nurse Practitioner Acute Care; ATTEND Nurse Practitioner Acute Care
DX: K92.2 Gastrointestinal hemorrhage, unspecified (principal); D69.6 Thrombocytopenia, unspecified; E44.0 Moderate protein-calorie malnutrition; E87.1 Hypo-osmolality and hyponatremia; E88.09 Other disorders of plasma-protein metabolism, not elsewhere classified; C90.00 Multiple myeloma not having achieved remission; K29.70 Gastritis, unspecified, without bleeding; R53.1 Weakness; K29.80 Duodenitis without bleeding; B83.8 Other specified helminthiases; R59.0 Localized enlarged lymph nodes; D63.0 Anemia in neoplastic disease; K86.9 Disease of pancreas, unspecified; M25.552 Pain in left hip
CPT/HCPCS: 36415; 71045-TC; 80048-TC; 80076-TC; 81001; 83690-TC; 83735-TC; 83880; 83935-TC; 84100-TC; 84300-TC; 84484-TC; 85025-TC; 85730-TC; A4223; G0378; J1885; J7030; Q9967

== ENCOUNTER 2023-03-26 15:14 | Emergency (ER) | payer MEDICAID ==
[~2023-03-26] VITALS: Ht 162.6 cm; Wt 72.6 kg
[~2023-03-26 15:14] MED LIST changes: -Folic Acid PO; +NAPR220T66 PO; -PANT40TA2 PO
[2023-03-26 16:00] VITALS: BP 134/78; TEMP 98.4; O2SAT 97
[2023-03-26] MEDS ORDERED: CEFTRIAXONE 1 G VIAL ONE (18:58)
[2023-03-26] MEDS ORDERED: CEFTRIAXONE 1 G VIAL IM ONE (19:00)
[2023-03-26] MEDS ORDERED: CEFD300C3 PO (19:03)
[2023-03-26] MEDS ORDERED: HYDR-3972 PO (19:03)
== END 2023-03-26 19:20 | disposition home or self-care (01) ==
LOC: ER 15:18
DX: H02.845 Edema of left lower eyelid (principal); H02.842 Edema of right lower eyelid; H02.844 Edema of left upper eyelid; H02.841 Edema of right upper eyelid; D64.9 Anemia, unspecified; Z79.899 Other long term (current) drug therapy; Z60.2 Problems related to living alone
CPT/HCPCS: 99283; 96372; 82962; J0696

== ENCOUNTER 2023-05-27 13:18 | Emergency (ER) | payer MEDICAID, OTHER ==
[~2023-05-27] VITALS: Ht 162.6 cm; Wt 77.1 kg
[~2023-05-27 13:18] MED LIST changes: +CEFD300C3 PO; +HYDR-3972 PO
[2023-05-27 13:27] VITALS: BP 140/66; TEMP 98.3
[2023-05-27] MEDS ORDERED: AMOX-427 PO (13:31)
[2023-05-27] MEDS ORDERED: CETI1TAB9 PO (13:31)
[2023-05-27 13:38] VITALS: O2SAT 100
== END 2023-05-27 13:44 | disposition home or self-care (01) ==
LOC: ER 13:22
DX: H66.91 Otitis media, unspecified, right ear (principal); Z60.2 Problems related to living alone

== ENCOUNTER 2023-07-17 14:15 | Emergency (ER) | payer OTHER ==
[~2023-07-17] VITALS: Ht 162.6 cm; Wt 64.0 kg
[~2023-07-17 14:15] MED LIST changes: +AMOX-427 PO; +CETI1TAB9 PO
[2023-07-17 15:59] VITALS: BP 128/79; TEMP 98
[2023-07-17] MEDS ORDERED: ACET-2605 PO (16:24)
[2023-07-17] MEDS ORDERED: ERYT3.5O9 EACHEYE (16:24)
[2023-07-17] MEDS ORDERED: IBUP-1955 PO (16:24)
[2023-07-17 16:57] VITALS: O2SAT 100
== END 2023-07-17 16:57 | disposition home or self-care (01) ==
LOC: ER 14:22
DX: H02.89 Other specified disorders of eyelid (principal); M79.672 Pain in left foot; M79.671 Pain in right foot; Z60.2 Problems related to living alone; Z85.72 Personal history of non-Hodgkin lymphomas

== ENCOUNTER 2023-10-30 17:37 | Emergency (ER) | payer MEDICAID, OTHER ==
[~2023-10-30] VITALS: Ht 167.6 cm; Wt 79.4 kg
[~2023-10-30 17:37] MED LIST changes: +ACET-2605 PO; +ERYT3.5O9 EACHEYE; +IBUP-1955 PO
[2023-10-30 18:17] VITALS: BP 124/79; TEMP 98.1; O2SAT 100
== END 2023-10-30 21:20 | disposition left against medical advice (07) ==
LOC: ER 17:40
DX: H57.13 Ocular pain, bilateral (principal); H57.89 Other specified disorders of eye and adnexa; Z53.21 Procedure and treatment not carried out due to patient leaving prior to being seen by health care provider

== ENCOUNTER 2024-04-01 15:37 | Emergency (ER) | payer OTHER ==
[~2024-04-01] VITALS: Ht 165.1 cm; Wt 77.1 kg
[2024-04-01 15:47] VITALS: BP 127/88; TEMP 97.9; O2SAT 100
== END 2024-04-01 16:16 | disposition home or self-care (01) ==
LOC: ER 15:47
DX: L85.3 Xerosis cutis (principal); R21 Rash and other nonspecific skin eruption; Z60.2 Problems related to living alone